=== PATIENT | male | born 1945 | race Caucasian/White ===

== ENCOUNTER 2017-10-15 21:07 | Inpatient (IN) | payer MEDICARE, OTHER ==
[~2017-10-15] VITALS: Ht 175.3 cm; Wt 110.2 kg
[~2017-10-15 21:07] MED LIST: ACET650T PO; ASPI-1271 PO; DOCU-299 PO; FENO160T9 PO; GABA-636 PO; GLIP10TE3 PO; HYDR12.51 PO; LANTUS SUBQ; LISI2.5T5 PO; MULT-1095 PO; SYN.075 PO
[2017-10-15 21:14] VITALS: BP 161/89
--- NOTE | 2017-10-15 21:18 | NUR ---
TO BED # 6 AMB, REPORT GIVEN TO MOOK DEAN.
--- NOTE | 2017-10-15 21:21 | NUR ---
PT TAKEN TO CHAIR E
--- NOTE | 2017-10-15 21:28 | NUR ---
PT MOVED TO BED 6
--- NOTE | 2017-10-15 21:30 | NUR ---
PATIENT IS A 72 Y/O MALE WHO PRESENTS TO THE ED C/O SHOULDER PAIN. PT STATES THAT HE FEELS IT IS NEW ONSET A-FIB. PT REPORTS 5/10 ACHING BILATERAL SHOULDER PAIN THAT DOES NOT RADIATE. PT DENIES CP, SOB, N/V/D. PT AAOX4, RR EVEN/UNLABORED. PT REPOSITIONED FOR COMFORT, BED IN LOWEST POSITION. ER MD DR. WHATLEY NOTIFIED. WILL CONTINUE TO MONITOR.
--- NOTE | 2017-10-15 21:59 | NUR ---
Dr. Ross evaluating patient at bedside.
[2017-10-15] MEDS ORDERED: DILTIAZEM 25 MG/5 ML VIAL IVP ONE (22:05)
[2017-10-15 22:28] LABS: BASOPHILS % (AUTO) 0.4 % (0.0-2.0); EOSINOPHILS # (AUTO) 0.1 K/uL (0-0.4); EOSINOPHILS % (AUTO) 1.2 % (0.0-4.0); HEMATOCRIT 35.3 % (36-52); HEMOGLOBIN 11.8 g/dL (12.0-18.0); LYMPHOCYTES # (AUTO) 1.1 K/uL (2.0-11.5); LYMPHOCYTES % (AUTO) 16.3 % (20.5-51.1); MEAN CORPUSCULAR HEMOGLOBIN 27 pg (27-31); MEAN CORPUSCULAR HGB CONC 34 g/dL (33-37); MEAN CORPUSCULAR VOLUME 79.7 fL (80-94); MONOCYTES # (AUTO) 0.5 K/uL (0.8-1.0); MONOCYTES % (AUTO) 7.2 % (1.7-9.3); NEUTROPHILS # (AUTO) 5.1 K/uL (1.8-7.7); NEUTROPHILS % (AUTO) 74.9 % (42.2-75.2); PLATELET COUNT (AUTO) 106 K/uL (140-450); RED BLOOD CELL COUNT(AUTO) 4.42 MIL/uL (4.20-6.10); RED CELL DISTRIBUTION WIDTH 16.2 % (11.6-13.7); WHITE BLOOD COUNT (AUTO) 6.8 K/uL (4.8-10.8)
--- NOTE | 2017-10-15 22:28 | NUR ---
X-Ray at bedside.
[2017-10-15] MEDS ORDERED: NACL 0.9% 1,000 ML IV ONE (22:35)
[2017-10-15 22:39] LABS: CARBON DIOXIDE 25.7 mmol/L (21-32); CHLORIDE 103 mmol/L (98-107); CREATININE 2.2 mg/dL (0.7-1.3); GLUCOSE 124 mg/dL (74-106); POTASSIUM 3.7 mmol/L (3.5-5.1); SODIUM SERUM 139 mmol/L (136-145); UREA NITROGEN, BLOOD 31 mg/dL (7-18)
[2017-10-15 22:46] LABS: ALBUMIN 3.4 g/dL (3.4-5.0); ASPARTATE AMINOTRANSFERASE 39 U/L (15-37); TOTAL BILIRUBIN 0.4 mg/dL (0.0-1.0)
[2017-10-15 23:07] LABS: APPEARANCE,URINE CLEAR (CLEAR); BILIRUBIN,URINE NEGATIVE (NEGATIVE); BLOOD, URINE NEGATIVE (NEGATIVE); COLOR,URINE YELLOW (YELLOW); LEUKOCYTE ESTERASE ,URINE NEGATIVE (NEGATIVE); NITRITE, URINE NEGATIVE (NEGATIVE); PH,URINE 5.5 (5.0-9.0); UGLUCOSE NEGATIVE (NEGATIVE)
[2017-10-15 23:07] LABS: PROTHROMBIN TIME 11.6 secs (10.8-13.4)
[2017-10-15] MEDS ORDERED: MV-M1TAB9 PO (23:13)
[2017-10-15] MEDS ORDERED: ALLO100T21 PO (23:13)
[2017-10-15] MEDS ORDERED: ACT30 PO (23:13)
[2017-10-15] MEDS ORDERED: [UNRECOGNIZED DRUG - CODE] PO (23:13)
[2017-10-15] MEDS ORDERED: OMEG1CAP32 PO (23:13)
[2017-10-15] MEDS ORDERED: TADA5TAB PO (23:13)
[2017-10-15] MEDS ORDERED: ATOR40TA PO (23:13)
[2017-10-15] MEDS ORDERED: NIAC500T6 PO (23:13)
[2017-10-15] MEDS ORDERED: FERR325E14 PO (23:13)
--- NOTE | 2017-10-15 23:30 | NUR ---
PATIENT RESTING AT THIS TIME. NO SIGNS OF DISTRESS.
[2017-10-15] MEDS ORDERED: ACETAMINOPHEN 325 MG TAB PO PRN (23:40)
[2017-10-15] MEDS ORDERED: HYDROcodone/APAP 7.5/325 MG 1 TAB PO PRN (23:40)
[2017-10-15] MEDS ORDERED: hePARIN / DEXT 5% PREMIX 250 ML IV SCH (23:45)
[2017-10-15] MEDS ORDERED: HEPARIN PER PHARMACY MC PRN (23:45)
[2017-10-15] MEDS ORDERED: DEXTROSE 50% 50 ML SYR IVP PRN (23:50)
[2017-10-15] MEDS ORDERED: INSULIN LISPRO SLIDING SCALE 100 UNITS/ML VIAL SUBQ PRN (23:50)
--- NOTE | 2017-10-16 00:06 | NUR ---
Patient will be admitted to care of DR. MYRICK. Admited to TELE. Will go to room 104B. Belongings list completed. Report to ENRIQUETA DEAN.
[2017-10-16 00:20] VITALS: BP 106/67
--- NOTE | 2017-10-16 00:20 | NUR ---
ADMITTED THIS 72 YEAR OLD MALE FROM ER PER [facility] WITH CC OF SHOULDER PAIN, AMBULATED TO BED WITH STEADY GAIT, ASSESSMENT DONE, VITAL SIGNS STABLE, UNCONTROLLED A-FIB ON TELE, DENIES CHEST PAIN AND SOB, ORIENTED TO ROOM AND CALL LIGHT, PLAN OF CARE DISCUSS WITH WITH PT AND , CALL LIGHT WITHIN REACH.
[2017-10-16] MEDS ORDERED: NITROGLYCERIN 0.4 MG TAB SL PRN (00:25)
[2017-10-16] MEDS ORDERED: METOPROLOL 25 MG TAB PO SCH (01:00)
[2017-10-16 01:13] LABS: BARBITURATE, URINE NEG. ng/ml (NEG <=200); BENZODIAZEPINE, URINE NEG. ng/mL (NEG <=200); CANNABINOID, URINE NEG. ng/mL (NEG <=50); COCAINE, URINE NEG. ng/mL (NEG <=300); OPIATE, URINE NEG. ng/mL (NEG <=2000); PHENCYCLIDINE SCREEN,URINE NEG. ng/mL (NEG <=25)
[2017-10-16] MEDS ORDERED: hePARIN / DEXT 5% PREMIX 250 ML IV SCH (01:35)
[2017-10-16 01:36] LABS: CHOL/HDL RATIO 4.1 (1-4.5); FREE T4 (FREE THYROXINE) 0.83 ng/dL (0.76-1.46); MAGNESIUM 1.2 mg/dL (1.8-2.4); PHOSPHORUS 4.5 mg/dL (2.5-4.9); THYROID STIMULATING HORMONE 3.3 uIU/mL (0.34-3.74)
--- NOTE | 2017-10-16 02:11 | NUR ---
TALKED TO DR. SHERMAN PT MAGNESIUM 1.2
[2017-10-16] MEDS: hePARIN / DEXT 5% PREMIX 250 ML IV SCH ×4 (02:13→23:39)
[2017-10-16] MEDS ORDERED: MAG SULF 2000 MG/WATER PREMIX 100 ML IV ONE (02:15)
--- NOTE | 2017-10-16 02:15 | NUR ---
HEPARIN BOLUS IVP GIVEN AND HEPARIN DRIP STARTED WITH RATE OF 10ML/H, PTT DRAWN SCHEDULED AT 0812, ALL NEEDS ATTENDED.
[2017-10-16] MEDS: NACL 0.9% 1,000 ML IV SCH ×4 (02:39→23:40)
[2017-10-16] MEDS ORDERED: MAG SULF 2000 MG/WATER PREMIX 50 ML IV ONE (02:51)
[2017-10-16] MEDS ORDERED: MAG SULF 2000 MG/WATER PREMIX 100 ML IV SCH (03:00)
[2017-10-16 04:00] VITALS: BP 104/57
--- NOTE | 2017-10-16 04:00 | NUR ---
PT EASILY AROUSABLE, VITAL SIGNS STABLE, DENIES ANY PAIN, PT AMBULATED TO BR WITH STEADY GAIT, MONITORED CLOSELY.
[2017-10-16] MEDS: INSULIN NPH HUM/REG INSULIN HM 100 UNIT/ML 10 ML VIAL SUBQ SCH (06:07)
--- NOTE | 2017-10-16 06:08 | NUR ---
BLOOD SUGAR CHECKED WITH 78 RESULT, 33 UNITS OF HUMULIN 70/30 GIVEN PER HOME MED PROTOCOL, NO DISTRESS NOTED.
[2017-10-16] MEDS: LEVOTHYROXINE 0.075 MG TAB PO SCH (06:35)
[2017-10-16] MEDS: glipiZIDE 10 MG TAB PO SCH ×2 (06:35→18:05)
[2017-10-16] MEDS: BLOOD GLUCOSE MONITORING 1 DEV DEV FS SCH ×4 (06:38→20:56)
--- NOTE | 2017-10-16 06:42 | NUR ---
DUE PO MEDICATIONS TAKEN, DENIES ANY PAIN, HEPARIN DRIP INFUSING WELL AT 10ML/H, AT BEDSIDE, MONITORED CLOSELY.
--- NOTE | 2017-10-16 07:15 | NUR ---
PT AWAKE, NO SIGNS OF DISTRESS, REPORT GIVEN TO RN SUMA FOR CONTINUITY OF CARE.
--- NOTE | 2017-10-16 07:18 | NUR ---
DR Guillermo ALEJANDRA CALLED AND UPDATED ON PT'S CONDITION, WITH NEW ORDER OF DIGOXIN 0.5 MG IVP ONCE NOW THEN DIGOXIN 0.25 MG Q4H IVP X2 DOSES, ENDORSE TO JERMAINE MOISE.
--- NOTE | 2017-10-16 07:20 | NUR ---
REPORT RECEIVED FROM VOIP ENGINEER NURSE AT BEDSIDE FOR CONTINUITY OF CARE. PATIENT AOX4, MARTINE AT BEDSIDE. INTRODUCED MYSELF, UPDATED BOARD. IV SITES INTACT PATENT AND ASYPTOMATIC, LEFT AC INFUSING HEPARIN, RIGHT AC SITE INFUSING NS WELL. PATIENT DENIES CHEST PAIN, RESPIRATIONS EVEN AND UNLABORED. SAFETY PRECAUTION IN PLACE, CALL LIGHT WITHIN REACH. WILL CONTINUE TO MONITOR PATIENT.
[2017-10-16 07:22] LABS: BASOPHILS % (AUTO) 0.4 % (0.0-2.0); EOSINOPHILS # (AUTO) 0.1 K/uL (0-0.4); EOSINOPHILS % (AUTO) 1.8 % (0.0-4.0); HEMATOCRIT 34.3 % (36-52); HEMOGLOBIN 11.6 g/dL (12.0-18.0); LYMPHOCYTES # (AUTO) 1.3 K/uL (2.0-11.5); LYMPHOCYTES % (AUTO) 20.6 % (20.5-51.1); MEAN CORPUSCULAR HEMOGLOBIN 27 pg (27-31); MEAN CORPUSCULAR HGB CONC 34 g/dL (33-37); MEAN CORPUSCULAR VOLUME 79.7 fL (80-94); MONOCYTES # (AUTO) 0.3 K/uL (0.8-1.0); MONOCYTES % (AUTO) 5.4 % (1.7-9.3); NEUTROPHILS # (AUTO) 4.4 K/uL (1.8-7.7); NEUTROPHILS % (AUTO) 71.8 % (42.2-75.2); PLATELET COUNT (AUTO) 100 K/uL (140-450); RED CELL DISTRIBUTION WIDTH 16.5 % (11.6-13.7); WHITE BLOOD COUNT (AUTO) 6.1 K/uL (4.8-10.8)
[2017-10-16] MEDS ORDERED: DIGOXIN 0.25 MG/ML AMP IV SCH (07:40)
[2017-10-16 08:00] VITALS: BP 114/63
--- NOTE | 2017-10-16 08:00 | NUR ---
ORDERED DOSE OF DIGOXIN ADMINISTERED. PATIENT TOLERATING IT WELL.
[2017-10-16 08:35] LABS: MAGNESIUM 1.8 mg/dL (1.8-2.4); PHOSPHORUS 3.6 mg/dL (2.5-4.9)
[2017-10-16 08:53] LABS: CHLORIDE 106 mmol/L (98-107); GLUCOSE 82 mg/dL (74-106); POTASSIUM 3.1 mmol/L (3.5-5.1); SODIUM SERUM 141 mmol/L (136-145); UREA NITROGEN, BLOOD 27 mg/dL (7-18)
[2017-10-16] MEDS ORDERED: INSULIN LANTUS 100 UNITS/ML 10 ML VIAL SUBQ SCH (09:00)
[2017-10-16] MEDS ORDERED: PIOGLITAZONE 30 MG TAB PO SCH (09:00)
[2017-10-16] MEDS ORDERED: DOCUSATE SODIUM 100 MG GELCAP PO SCH (09:00)
[2017-10-16] MEDS ORDERED: HYDROCHLOROTHIAZIDE 25 MG TAB PO SCH (09:00)
[2017-10-16] MEDS ORDERED: ALLOPURINOL 100 MG TAB PO SCH (09:00)
[2017-10-16] MEDS ORDERED: NIACIN 500 MG TAB PO SCH (09:00)
[2017-10-16] MEDS: LISINOPRIL 5 MG TAB PO SCH (09:00)
[2017-10-16 09:07] LABS: ANION GAP 15.9 (8-16); CARBON DIOXIDE 22.2 mmol/L (21-32)
--- NOTE | 2017-10-16 09:40 | NUR ---
ECHOCARDIOGRAM COMPLETED
--- NOTE | 2017-10-16 10:15 | NUR ---
FAXED INITIAL REVIEW TO [facility] [phone] PHONE RADHIKA [phone]
[2017-10-16] MEDS ORDERED: POTASSIUM CHLORIDE 40 MEQ, LIDOCAINE 1% 25 MG in NACL 0.9% 250 ML IV ONE (10:30)
[2017-10-16] MEDS: ATORVASTATIN 20 MG TAB PO SCH (10:39)
[2017-10-16] MEDS: GABAPENTIN 100 MG CAP PO SCH ×3 (10:39→17:20)
[2017-10-16] MEDS: FERROUS SULFATE 325 MG TABEC PO SCH (10:39)
[2017-10-16] MEDS: METOPROLOL 25 MG TAB PO SCH ×2 (10:39→20:47)
[2017-10-16] MEDS: ASPIRIN 81 MG TAB.CHEW PO SCH (10:39)
[2017-10-16] MEDS: MULTIVITAMIN 1 TAB PO SCH (10:40)
[2017-10-16] MEDS: ASCORBIC ACID 500 MG TAB PO SCH (10:40)
[2017-10-16] MEDS: PANTOPRAZOLE 40 MG TABEC PO SCH (10:40)
[2017-10-16] MEDS: DOCUSATE SODIUM 100 MG GELCAP PO SCH ×2 (10:40→20:46)
[2017-10-16] MEDS: HYDROCHLOROTHIAZIDE 25 MG TAB PO SCH (10:40)
--- NOTE | 2017-10-16 10:40 | NUR ---
ORDERED MEDICATIONS GIVEN. PATIENT TOLERATED THEM WELL. LISINOPRIL HELD BECAUSE OF PATIENT'S BLOOD PRESSURE OF 105/60 HR 88, ORETIC AND METOPROLOL GIVEN DIRECTED BY DR. DOBBINS. AT BEDSIDE. RESPIRATIONS EVEN AND UNLABORED. NO SIGNS OF DISTRESS OR SOB OR CHEST PAIN NOTED. SAFETY PRECAUTION IN PLACE, CALL LIGHT WITHIN REACH, WILL CONTINUE TO MONITOR PATIENT.
--- NOTE | 2017-10-16 11:06 | NUR ---
PATIENT HAS BEEN SCREENED AND CATEGORIZED MODERATE NUTRITION RISK. PATIENT WILL BE SEEN WITHIN 3-5 DAYS OF ADMISSION. 10/18/17 10/20/[address]
--- NOTE | 2017-10-16 11:10 | NUR ---
NEW PPT RESULT, HEPARIN RATE INCREASED TO 1170 UNIT/HR PER PROTOCOL WITH 2600 UNITS BOLUS GIVEN. PATIENT TOLERATED IT WELL. NEW PPT ORDERED FROM LAB AT 1700.
[2017-10-16] MEDS: KCL 20 MEQ/WATER INJ PREMIX 100 ML IV SCH ×2 (11:11→13:00)
--- NOTE | 2017-10-16 11:11 | NUR ---
POTASSIUM LEVEL 3.1, INFORMED DR. DOBBINS, NEW ORDER IN FOR KRIDER. ADMINISTERED ORDERED. PATIENT TOLERATING IT WELL.
[2017-10-16 12:00] VITALS: BP 93/54
--- NOTE | 2017-10-16 13:31 | NUR ---
ORDERED DOSE OF DIGOXIN ADMINISTERED. PATIENT TOLERATING IT WELL. WILL REASSESS AND CONTINUE TO MONITOR PATIENT.
[2017-10-16] MEDS: DIGOXIN 0.25 MG/ML AMP IV SCH ×2 (13:32→17:21)
[2017-10-16 16:00] VITALS: BP 112/50
[2017-10-16] MEDS ORDERED: INSULIN NPH HUM/REG INSULIN HM 100 UNIT/ML 10 ML VIAL SUBQ SCH ×2 (17:00→21:00)
[2017-10-16] MEDS ORDERED: KCL 20 MEQ/WATER INJ PREMIX 100 ML IV SCH (17:09)
--- NOTE | 2017-10-16 17:18 | NUR ---
DR. PAZ IN TO SEE THE PATIENT. WILL WAIT FOR HIS RECOMMENDATIONS.
--- NOTE | 2017-10-16 17:21 | NUR ---
ORDERED DOSE OF DIGOXIN ADMINISTERED. PATIENT TOLERATING IT WELL. WILL REASSESS AND CONTINUE TO MONITOR PATIENT.
--- NOTE | 2017-10-16 18:45 | NUR ---
NEW PPT RESULT, HEPARIN RATE INCREASED TO 1340 UNIT/HR PER PROTOCOL WITH 2600 UNITS BOLUS GIVEN. PATIENT TOLERATED IT WELL. NEW PPT ORDERED FROM LAB AT 0055.
--- NOTE | 2017-10-16 19:25 | NUR ---
REPORT GIVEN TO DETAIL ASSEMBLER NURSE AT BEDSIDE FOR CONTINUITY OF CARE. PATIENT IN STABLE CONDITION. DR. ALEJANDRA IN TO SEE THE PATIENT.
--- NOTE | 2017-10-16 19:26 | NUR ---
RECEIVED PT ON BED, AAOX4, VITAL SIGNS STABLE, CONTROLLED A-FIB ON TELE, DENIES PAIN OR SOB, HEPARIN DRIP INFUSING WELL AT 13.4 ML/H, 2ND BAG OF K-RIDER INFUSING WELL, PLAN OF CARE DISCUSS, SAFETY MEASURES IN PLACE, CALL LIGHT WITHIN REACH.
--- NOTE | 2017-10-16 19:50 | NUR ---
DR Guillermo ALEJANDRA HERE FOR CARDIAC CONSULT, HE TALKED TO PT AND PLAN TO [place] TOMORROW TO [facility] AIR BOX TESTER AT 1000, WITH ORDER FOR SS TO OBTAIN AUTHORIZATION AND TRANSFER TOMORROW, CONTINUE HEPARIN DRIP AND TO STOPPED IT BEFORE TRANSFER.
[2017-10-16 20:00] VITALS: BP 108/48
--- NOTE | 2017-10-16 21:00 | NUR ---
BLOOD SUGAR CHECKED WITH 116 RESULT, DUE MEDS ADMINISTERED, SNACK PROVIDED, ALL NEEDS ATTENDED.
--- NOTE | 2017-10-16 23:45 | NUR ---
PT AWAKE TALKING TO AT BEDSIDE, VITAL SIGNS STABLE, A-FIB ON TELE, DENIES PAIN AND SOB, NEW HEPARIN BAG STARTED AT SAME RATE OF 13.4 ML/H, VOIDED FREELY PER URINAL AND SPECIMEN SENT TO LAB FOR TEST, CONTINUE TO MONITOR CLOSELY.
[2017-10-17] VITALS: BP 113/51
--- NOTE | 2017-10-17 01:30 | NUR ---
PTT RESULT OF 47, NO CHANGE IN HEPARIN DRIP RATE, NEXT PTT SCHEDULED AT 0650.
[2017-10-17 04:00] VITALS: BP 123/58
--- NOTE | 2017-10-17 04:00 | NUR ---
PT SLEEPING, EASILY AROUSABLE, VITAL SIGNS STABLE, A-FIB ON TELE, ASYMPTOMATIC, MONITORED CLOSELY.
[2017-10-17] MEDS: glipiZIDE 10 MG TAB PO SCH (06:37)
[2017-10-17] MEDS: LEVOTHYROXINE 0.075 MG TAB PO SCH (06:37)
[2017-10-17] MEDS: INSULIN NPH HUM/REG INSULIN HM 100 UNIT/ML 10 ML VIAL SUBQ SCH (06:42)
[2017-10-17] MEDS: NACL 0.9% 1,000 ML IV SCH (06:42)
[2017-10-17] MEDS: BLOOD GLUCOSE MONITORING 1 DEV DEV FS SCH (06:42)
--- NOTE | 2017-10-17 06:45 | NUR ---
BLOOD SUGAR CHECKED WITH 99 RESULT, DUE MEDS ADMINISTERED, DENIES ANY PAIN OR SOB, HEPARIN DRIP INFUSING WELL AT 13.4 ML/H, NEXT PTT AT 0650, AWAITING [place] TO [facility] AIRPLANE FIRST OFFICER TODAY.
--- NOTE | 2017-10-17 07:10 | NUR ---
RECEIVED PATIENT REPORT AT BEDSIDE. PATIENT AWAKE, ALERT AND ORIENTED. NO S/S OF DISTRESS. PATIENT ON ON ROOM AIR. NO SOB. HEP DRIP CURRENTLY INFUSING AT 13.4ML/HR ON THE LEFT AC. PATIENT ON TELE MONITORING. BED LOWERED WITH CALL LIGHT WITHIN REACH. WILL CONTINUE TO MONITOR
[2017-10-17 07:30] LABS: BASOPHILS % (AUTO) 0.6 % (0.0-2.0); EOSINOPHILS # (AUTO) 0.1 K/uL (0-0.4); EOSINOPHILS % (AUTO) 1.9 % (0.0-4.0); HEMATOCRIT 34.3 % (36-52); HEMOGLOBIN 11.3 g/dL (12.0-18.0); LYMPHOCYTES # (AUTO) 1.1 K/uL (2.0-11.5); LYMPHOCYTES % (AUTO) 19.7 % (20.5-51.1); MEAN CORPUSCULAR HEMOGLOBIN 27 pg (27-31); MEAN CORPUSCULAR HGB CONC 33 g/dL (33-37); MEAN CORPUSCULAR VOLUME 82.1 fL (80-94); MONOCYTES # (AUTO) 0.4 K/uL (0.8-1.0); MONOCYTES % (AUTO) 6.3 % (1.7-9.3); NEUTROPHILS # (AUTO) 4.1 K/uL (1.8-7.7); NEUTROPHILS % (AUTO) 71.5 % (42.2-75.2); PLATELET COUNT (AUTO) 90 K/uL (140-450); RED BLOOD CELL COUNT(AUTO) 4.17 MIL/uL (4.20-6.10); RED CELL DISTRIBUTION WIDTH 16.2 % (11.6-13.7); WHITE BLOOD COUNT (AUTO) 5.7 K/uL (4.8-10.8)
--- NOTE | 2017-10-17 07:30 | NUR ---
PT AWAKE, NO SIGNS OF DISTRESS, REPORT GIVEN TO JERMAINE RUIZ RN FOR CONTINUITY OF CARE.
[2017-10-17 07:49] LABS: ALBUMIN 3.1 g/dL (3.4-5.0); ANION GAP 15.5 (8-16); ASPARTATE AMINOTRANSFERASE 24 U/L (15-37); CARBON DIOXIDE 22.5 mmol/L (21-32); CHLORIDE 106 mmol/L (98-107); CREATININE 1.8 mg/dL (0.7-1.3); GLUCOSE 92 mg/dL (74-106); MAGNESIUM 1.5 mg/dL (1.8-2.4); PHOSPHORUS 2.7 mg/dL (2.5-4.9); SODIUM SERUM 140 mmol/L (136-145); TOTAL BILIRUBIN 0.2 mg/dL (0.0-1.0); UREA NITROGEN, BLOOD 23 mg/dL (7-18)
[2017-10-17 08:00] VITALS: BP 108/66
[2017-10-17] MEDS ORDERED: DEXT 5% / NACL 0.9% 500 ML IV SCH (08:00)
[2017-10-17 08:07] LABS: URIC ACID 6.9 mg/dL (2.6-7.2)
[2017-10-17] MEDS: ASPIRIN 81 MG TAB.CHEW PO SCH (08:39)
[2017-10-17] MEDS: FERROUS SULFATE 325 MG TABEC PO SCH (08:39)
[2017-10-17] MEDS: GABAPENTIN 100 MG CAP PO SCH (08:39)
[2017-10-17] MEDS: ASCORBIC ACID 500 MG TAB PO SCH (08:39)
[2017-10-17] MEDS: ATORVASTATIN 20 MG TAB PO SCH (08:40)
[2017-10-17] MEDS: DOCUSATE SODIUM 100 MG GELCAP PO SCH (08:40)
[2017-10-17] MEDS: HYDROCHLOROTHIAZIDE 25 MG TAB PO SCH (08:40)
[2017-10-17] MEDS: METOPROLOL 25 MG TAB PO SCH (08:41)
[2017-10-17] MEDS: PANTOPRAZOLE 40 MG TABEC PO SCH (08:41)
[2017-10-17] MEDS: MULTIVITAMIN 1 TAB PO SCH (08:41)
[2017-10-17] MEDS: LISINOPRIL 5 MG TAB PO SCH (09:00)
--- NOTE | 2017-10-17 09:22 | NUR ---
PTT 52.7. NO CHANGE IN HEPARIN DRIP PER PROTOCOL
--- NOTE | 2017-10-17 10:12 | NUR ---
RECEIVED ORDER THIS AM FOR PATIENT TO GO TO [facility] FOR CARDIAC CATH. I FAXED INFORMATION TO THE CARDIAC LAB. CALLED RADHIKA FROM [facility] AND INFORMED HER. SHE GAVE AUTH FOR [facility] FOR CARDIAC CATH UNDER OBSERVATION. I CALLED LEON AND INFORMED HER THAT RADHIKA FROM [facility] SAID THAT IF THE PATIENT NEEDED FURTHER TREATMENT, THAT HE WOULD HAVE TO BE TRANSFERED TO [facility]. LEON SAID SHE INFORMED DR. Denia ALEJANDRA ABOUT THAT. THE AUTH FOR [facility] IS [id number], AND I INFORMED LEON. I ALSO INFORMED HER THAT THIS PATIENT IS ON HEPARIN DRIP AND THAT IT WILL BE STOPPED UPON TRANSFER. I INFORMED HER OF THE PTT TODAY. LELO DEANMECHANICAL CAD DRAFTER DIRECTOR AND I SPOKE WITH RADHIKA FROM [facility] AND RADHIKA SAID THEY ARE OK WITH THE CARDIAC CATH AT [facility], BUT IT FURTHER TREATMENT NEEDED, HE WOULD HAVE TO GO TO [facility]. I CALLED [facility] AND SET UP TRANSPORT, ALS, FOR 11A.M. NURSE TO CALL REPORT TO [facility], [phone]. [facility] TO STOP IN ER FIRST. AUTH FOR [facility], [id number]. ALFONSO DEAN CHARGE NURSE AWARE.
--- NOTE | 2017-10-17 10:45 | NUR ---
GAVE PATIENT REPORT TO [facility]
[2017-10-17 10:58] LABS: CREATININE,URINE RANDOM 148 mg/dL (30-125); URINE SODIUM, RANDOM 124 mmol/l (40-220)
[2017-10-17 10:59] LABS: CHLORIDE,URINE RANDOM 126 mmol/L (110-250)
--- NOTE | 2017-10-17 11:00 | NUR ---
PATIENT PICKED UP BY [facility]. DISCHARGE INSTRUCTIONS GIVEN. PATIENT VERBALIZED UNDERSTANDING. PATIENT LEFT WITH ALL HIS BELONGINGS AND DISCHARGE PAPERS. PATIENT LEFT IN STABLE CONDITION
== END 2017-10-17 11:00 | disposition short-term general hospital (02) | DRG 280 ==
LOC: MED 21:07 → MTU 23:44
PROVIDERS: ADMIT General Practice; ATTEND General Practice
DX: I13.10 Hypertensive heart and chronic kidney disease without heart failure, with stage 1 through stage 4 chronic kidney disease, or unspecified chronic kidney disease (principal); N17.0 Acute kidney failure with tubular necrosis; I21.4 Non-ST elevation (NSTEMI) myocardial infarction; I50.43 Acute on chronic combined systolic (congestive) and diastolic (congestive) heart failure; D68.59 Other primary thrombophilia; I24.9 Acute ischemic heart disease, unspecified; N25.81 Secondary hyperparathyroidism of renal origin; E11.65 Type 2 diabetes mellitus with hyperglycemia; E87.6 Hypokalemia; E78.5 Hyperlipidemia, unspecified; E11.69 Type 2 diabetes mellitus with other specified complication; I05.0 Rheumatic mitral stenosis; E03.9 Hypothyroidism, unspecified; I16.0 Hypertensive urgency; Z68.35 Body mass index [BMI] 35.0-35.9, adult; E83.42 Hypomagnesemia; E11.22 Type 2 diabetes mellitus with diabetic chronic kidney disease; I35.0 Nonrheumatic aortic (valve) stenosis; I27.21 Secondary pulmonary arterial hypertension; E66.01 Morbid (severe) obesity due to excess calories; N18.3 Chronic kidney disease, stage 3 (moderate); E11.40 Type 2 diabetes mellitus with diabetic neuropathy, unspecified; E78.1 Pure hyperglyceridemia; E86.0 Dehydration; I48.91 Unspecified atrial fibrillation; M10.9 Gout, unspecified; Z79.899 Other long term (current) drug therapy
CPT/HCPCS: 36415; 71045; 76770; 80048; 80053; 80305; 81003; 82150; 82436; 82570; 82948; 83036; 83690; 83735; 83880; 84100; 84300; 84439; 84443; 84484; 84550; 85025; 85610; 85730; 87081; 93005; 93925; 93970; 96361; 96374; 99285; J1160; J1644; J1815; J3475; J3480; J3490; J7030; J7042; Q0092